=== PATIENT | female | born 1935 | race Caucasian/White ===

== ENCOUNTER 2019-01-03 11:42 | Inpatient (IN) ==
[2019-01-03] MEDS ORDERED: NS 500 ML IV ONE (12:26)
[2019-01-03 12:42] LABS: URINE SOURCE CATH
[2019-01-03 12:45] LABS: BILIRUBIN URINE NEGATIVE (NEGATIVE); BLOOD URINE NEGATIVE (NEGATIVE); COLOR YELLOW; GLUCOSE URINE NEGATIVE (NEGATIVE); KETONE URINE NEGATIVE (NEGATIVE); LEUKOCYTES URINE NEGATIVE (NEGATIVE); NITRITE URINE NEGATIVE (NEGATIVE); PROTEIN URINE NEGATIVE (NEGATIVE); SP GRAVITY URINE 1.008; TURBIDITY URINE CLEAR (CLEAR); UROBILINOGEN URINE NORMAL (NORMAL)
[2019-01-03 12:46] LABS: UR EPITHELIAL CELLS <10 /HPF (<10); URINE BACTERIA NEGATIVE /HPF; URINE RBC <10 /HPF (<10); URINE WBC <10 /HPF (<10)
[2019-01-03 13:06] LABS: AGAP 16; ALB/GLOB RATIO 1.3; ALBUMIN 4.6 g/dL (3.5-5.0); ALKALINE PHOSPHATASE 87 U/L (32-104); BUN 14 mg/dL (8-22); CHLORIDE 98 mmol/L (98-107); COSMO 278; CREATININE 0.7 mg/dL (0.5-0.9); ESTIMATED GFR > 60; GLUCOSE 140 mg/dL (70-104); GOT 26 U/L (10-30); GPT 13 U/L (10-36); SODIUM 138 mmol/L (136-145); TCO2 24 mmol/L (25-35); TOTAL BILIRUBIN 0.57 mg/dL (0.20-1.00); TOTAL PROTEIN 8.1 g/dL (6.3-8.3)
[2019-01-03 13:09] LABS: BASO# 0.01 X1000 (0.0-0.2); BASO% 0.2 % (0.0-0.8); HEMOGLOBIN 14.6 g/dL (12.0-16.0); LYMPH# 0.43 X1000 (1.2-3.4); MCH 30.9 PG (27-31); MCHC 33.2 g/dL (33-37); MONO# 0.22 X1000 (0.11-0.59); MONO% 3.6 % (1.7-9.3); MPV 9.8 FL (7.4-10.4); NEUT# 5.45 X1000 (1.4-6.5); NEUT% 89.2 % (42.2-75.2); PLT 219 X1000 (130-400); RBC 4.73 XMIL (4.2-5.4); RDW 13.1 % (11.5-14.5); WBC 6.11 X1000 (4.8-10.8)
[2019-01-03 13:12] LABS: POTASSIUM 4.2 mmol/L (3.5-5.1)
--- NOTE | 2019-01-03 13:52 | Diag Imaging Result Doc PS360 ---
CHEST-1 VIEW - 01/03/2019 INDICATION: SOB COMPARISON: None FINDINGS: There is mild cardiomegaly. Pulmonary vascularity is top normal. No infiltrates or edema. No large pleural effusion. IMPRESSION: Cardiomegaly. Electronically signed by Kayode Alexander 01/03/2019 1:50 PM
--- NOTE | 2019-01-03 13:53 | Diag Imaging Result Doc PS360 ---
PELVIS - 01/03/2019 INDICATION: pain TECHNIQUE: COMPARISON: None FINDINGS: Bones are intact and normally aligned. There is moderate to severe degeneration of both sacroiliac joints. Hip joints are well preserved. Soft tissues are grossly clear. There are surgical clips in the soft tissues at the left side of the pelvis. IMPRESSION: No acute disease. Electronically signed by Kayode Alexander 01/03/2019 1:51 PM
--- NOTE | 2019-01-03 13:54 | Diag Imaging Result Doc PS360 ---
LUMBAR SPINE 2-VIEWS - 01/03/2019 INDICATION: back pain TECHNIQUE: COMPARISON: 06/21/2017 FINDINGS: There is worsening central compression deformity of L1 consistent with osteoporotic compression fracture. This now measures about 33%. There may be subtle compression deformity of T12 as well with perhaps 10% loss of height. Stable anterolisthesis of L4 and L5. Stable moderate multilevel disc degeneration. IMPRESSION: Increasing osteoporotic compression fractures. Electronically signed by Kayode Alexander 01/03/2019 1:52 PM
[2019-01-03] MEDS ORDERED: TYLENOL PO ONE (14:05)
--- NOTE | 2019-01-03 14:46 | PROVIDER DOCUMENTATION ---
This chart was entered by Marija Pope Scribe, acting as scribe for Josh Siddiqui MD. HPI-General Adult - General Chief Complaint: Back Pain Stated Complaint: PAIN Time Seen by Provider: 01/03/19 12:21 Source: family (son), EMS Allergies/Adverse Reactions: Patient Allergies Allergy/AdvReac Type Severity Reaction Status Date / Time No Known Allergies Allergy Verified 01/03/19 12:34 Home Medications: Home Medication List Medication Instructions Recorded Confirmed Last Taken Type Levothyroxine [Synthroid] 100 microgm PO DAILY 07/15/13 01/03/19 01/02/19 History Aspirin 1 tab PO DAILY 01/03/19 01/03/19 01/02/19 History Cyanocobalamin (Vitamin B-12) 1 tab PO DAILY 01/03/19 01/03/19 01/02/19 History [Vitamin B12] Pravastatin Sodium 1 tab PO QHS 01/03/19 01/03/19 01/02/19 History - History of Present Illness -Gen Adult Nature of Presenting Problems: 83yof presents to ED cc 'pain' and weakness. Son is at bedside and reports pt c/o back pain, which is normal , before bed but could still walk and then this morning pt can't ambulate and c/o pain whenever she is touched anywhere. Son reports pt has severe dementia and this week. Upon exam pt flinches whenever her legs, arms, abdomen or head was touched. Onset/Duration: reports: this morning Timing: reports: still present Similar Symptoms Previously?: No Recently seen or treated by another doctor?: No Review of Systems - Adult - REVIEW OF SYSTEMS - ADULT ROS:: limited per condition (son) Constitutional: reports: see HPIbraden. denies: chills, fever Eyes: reports: no symptoms reported Ears, Nose, Mouth & Throat: reports: no symptoms reported Cardiovascular: reports: no symptoms reported Respiratory: reports: no symptoms reported Gastrointestinal: reports: no symptoms reported Genitourinary: reports: no symptoms reported Musculoskeletal: reports: see HPI, back pain Integumentary: reports: no symptoms reported Neurological: reports: no symptoms reported Psychiatric: reports: no symptoms reported Endocrine: reports: no symptoms reported Hematologic/Lymphatic: reports: no symptoms reported Allergic/Immunologic: reports: no symptoms reported All Other Systems: Reviewed and Negative Past History - Adult - PAST MEDICAL HISTORY-ADULT Review of Records: reports: Nursing Assessment Review, Medications Reviewed, Social history reviewed & non-contributory. Physical Exam-General - PHYSICAL EXAM-ADULT Initial Vital Signs Reviewed: Yes - CONSTITUTIONAL General Appearance: appears well. negative: anxious, combative - EYES Eyes: PERRL/EOMI, pink conjunctivae. negative: meningismus, pale conjunctivae, photophobia - HEAD, EARS, NOSE, MOUTH & THROAT HENMT: normocephalic/atraumatic, moist mucous membranes, normal ENT inspection. negative: angioedema - NECK Neck: non-tender, full range of motion, supple, normal inspection. negative: C- spine tenderness - RESPIRATORY Respiratory: chest non-tender, lungs clear, normal breath sounds, no pleuratic chest pain, no respiratory distress, no accessory muscle use. negative: crackles, rales, rhonchi, stridor, wheezing - CARDIOVASCULAR Cardiovascular: normal peripheral pulses, regular rate, rhythm, no edema, no gallop, no JVD, no murmur. negative: bradycardia, tachycardia - GASTROINTESTINAL (ABDOMEN) Abdominal Exam: normal bowel sounds, soft, no organomegaly, no pulsatile mass, tenderness. negative: non tender, guarding, rigid, rebound, hernia, mass - MUSCULOSKELETAL Extremity: normal range of motion, non-tender, normal gait, normal inspection, no pedal edema, no calf tenderness, normal capillary refill, pelvis stable. negative: deformity - PSYCHIATRIC Psych/Mental Status: normal mood/affect. negative: anxious, disheveled, depressed affect Progress - PLAN OF CARE/RESULTS Progress/Plan/Lab Results: Orders Category Date Time Status Light Cath Insertion ORDERED Care 01/03/19 12:26 Active CHEST-1 VIEW [RAD] Stat Exams 01/03/19 12:27 Ordered LUMBAR SPINE 2-VIEWS [RAD] Stat Exams 01/03/19 12:27 Ordered PELVIS [RAD] Stat Exams 01/03/19 12:27 Ordered CBC WITH DIFF [HEME] Stat Lab 01/03/19 12:26 Uncollected COMPREHENSIVE METABOLIC PANEL [CHEM] Stat Lab 01/03/19 12:26 Uncollected UA NIMS W/REFLEX CULT [URINALYSIS] Stat Lab 01/03/19 12:26 Uncollected 0.9% Sodium Chloride Inj [Ns] 500 ml Med 01/03/19 12:26 Active IV 999 mls/hr Result Diagrams: 01/03/19 12:20 01/03/19 12:20 - REASSESSMENT Reassessment #1 Time Reassessed: 14:45 Status: unchanged (MOVES ALL EXTREMITIES. DISCUSSED WITH HOSPITALIST. WILL ADMIT) - XRAY 1 XRAY: Bilateral XRAY Study: Chest Impression: See EMR Report (IMPRESSION: Cardiomegaly. Electronically signed by Kayode Alexander 01/03/2019 1:50 PM) 2 XRAY Study: Pelvis Impression: See EMR Report (IMPRESSION: No acute disease. Electronically signed by Kayode Alexander 01/03/2019 1:51 PM) 3 XRAY Study: Lumbar Spine Impression: See EMR Report (IMPRESSION: Increasing osteoporotic compression fractures. Electronically signed by Kayode Alexander 01/03/2019 1:52 PM) Departure - Departure Date of Disposition Decision: 01/03/19 Time of Disposition Decision: 14:44 DIAGNOSIS: Intractable back pain, Unable to ambulate Disposition: ADMITTED INPATIENT 09 Certified Medical Emergency: Emergent Condition: Stable Referrals and Follow-Ups: Faheem Edmondson [Primary Care Provider] - - Critical Care Note This patient required my direct & personal management of CC.: No Attestation - Physician/ CHRIS Attestation Patient care was provided by Advanced Practice Provider:: No The physician spent face to face time with patient:: Yes Advanced Practice Provider documentation review:: Supervising physician onsite and consulted in the evaluation and care of this patient. The physician did have a face to face encounter with the patient. This chart was documented by the indicated scribe, (Marija Pope Scribe) and accurately reflects the services I performed and decisions made by me, Josh Siddiqui MD, as attested by the provider's signature.
[2019-01-03] MEDS ORDERED: TYLENOL PO PRN (14:59)
[2019-01-03] MEDS ORDERED: ZOFRAN IV PRN (14:59)
[2019-01-03] MEDS ORDERED: ULTRAM PO PRN (15:05)
[2019-01-03] MEDS: MIRALAX PO SCH (16:42)
[2019-01-03] MEDS: LOVENOX SUBQ SCH (16:42)
[2019-01-03] MEDS: NS 1,000 ML IV SCH (16:42)
--- NOTE | 2019-01-03 19:41 | Diag Imaging Result Doc PS360 ---
ABDOMEN FLAT/UPRIGHT - 01/03/2019 INDICATION: constipation, COMPARISON: None FINDINGS: There is mild diffuse constipation. No bowel obstruction or free air. IMPRESSION: Mild diffuse constipation. Electronically signed by Kayode Alexander 01/03/2019 7:39 PM
[2019-01-03] MEDS ORDERED: PRAVACHOL PO SCH (21:00)
[2019-01-03] MEDS: LACTULOSE PO SCH (21:16)
--- NOTE | 2019-01-04 01:45 | HISTORY AND PHYSICAL ---
FINISHED CIGAR MAKER: Dr. Faheem Edmondson. CHIEF COMPLAINT: Generalized weakness. HISTORY OF PRESENT ILLNESS: Mrs. Moscoso is an 83-year-old female with past medical history of dementia, hyperlipidemia, and hypothyroidism. She presented to the ER today. Son states that last night she was not eating very much. She had a real decreased appetite. She went to bed. He woke up this morning. She was not up yet. Around 10 o'clock in the morning whenever he realized she still was not up he went in to check on her and the patient was complaining of severe back pain and did not feel like getting up and he stated that she did not think she was able to get up. He called EMS at this time. The son states that his father this past week and they buried him this week. Patient has had a real disruption to her routine this week. She does have severe dementia. She is able to still get up and move around. Her short- term memory comes and goes. She was able to converse with me while in the room. She did complain of pain to the bilateral lower extremities when I touched her legs. The patient was able to move her legs, but was complaining of pain in the legs. The patient did not seem to be oriented to place or time. She was oriented to person. The patient did know who her son was also. The patient is not complaining of any chest pain at this time. Family states she has not had any difficulty urinating. All skin is intact. She does have a very dry feet and she does have real thickened toenails. Laboratory findings, there are no acute findings on her labs. Her urinalysis was negative. There was a lumbar spine x-ray that showed increasing osteoporotic and compression fractures. The hip and the pelvis x-ray showed moderate to severe degeneration of both sacroiliac joints. The patient is unable to ambulate at this time. PAST MEDICAL HISTORY: Dementia, hypertension, hyperlipidemia, and hypothyroidism. PAST SURGICAL HISTORY: Son does not know of any surgeries that patient has had. He states if she had any surgeries, it was before he was born. FAMILY HISTORY: Mother from leukemia. She has had several brothers and sisters that had heart problems, and cancer and stroke. She had 9 brothers and sisters, only 1 is left living. SOCIAL: Patient lives with her son in [place]. She does not smoke. She does not drink. ALLERGIES: None. MEDICATIONS: 1. Aspirin 81 mg p.o. daily. 2. Vitamin B12 2500 mcg p.o. daily. 3. Synthroid 100 mcg p.o. daily. 4. Pravastatin sodium 20 mg p.o. at bedtime. LABORATORIES AND DIAGNOSTICS: White blood cell count 6.11, hemoglobin 14.6, hematocrit 44.0, platelet count 219,000. Sodium 138, potassium 4.2, carbon dioxide 24, BUN 14, creatinine is 0.7, estimated GFR is greater than 60, glucose is 140, calcium is 10, total bilirubin is 0.57, AST is 26, ALT is 13. Urinalysis is negative. Abdominal x-ray has been performed. There is no report back. X-ray of the lumbar spine shows increasing osteoporotic compression fractures. X-ray of the hip and pelvis shows no acute disease, but does show severe degeneration of both sacroiliac joints. Chest x-ray shows cardiomegaly. REVIEW OF SYSTEMS: A 12 point review of system has been performed. All are negative except what is stated above in the HPI. PHYSICAL EXAMINATION: VITAL SIGNS: Temperature 99.1 degrees, pulse rate 98, respiratory rate is 18, blood pressure is 152/67, O2 saturation is 100% on room air. Height is 5 feet 5 inches. Weight is 165 pounds. GENERAL: This is an 83-year-old female who is lying in the ER stretcher. She is in no acute distress at present time. She is well nourished and well developed. HEENT: Atraumatic, normocephalic. Pupils are equal, round, reactive to light. Mucous membranes are dry. NECK: Supple with no lymphadenopathy. Trachea is midline. No JVD noted. CARDIOVASCULAR: Regular rate and rhythm. No murmurs, gallops, or rubs appreciated. RESPIRATORY: Lung sounds are clear with equal chest excursion. Respirations are nonlabored with no accessory muscle usage. GASTROINTESTINAL: Soft, nontender, nondistended. Bowel sounds are present x4. GENITOURINARY: There is a Light catheter in place. It has clear yellow urine output. NEUROLOGIC: Patient is awake and alert. She is able to follow all commands. She does not know where she is. She does not know the year. She is unable to tell me her date, but she is able to tell me her name and she appears to know who her son is. MUSCULOSKELETAL: She is able to move all extremities to command. Full distal strength noted. No abnormalities, but she states that she is unable to get up at this time. Complaints of pain to lower legs. Son states that she is able to walk except for today she has not been able to walk. There are no deformities noted. EXTREMITIES: No clubbing, cyanosis. There is edema noted to bilateral lower extremities. The son states that this is not new for her. She does have usually have edema in the bilateral lower extremities. DP and PT pulses are present and palpable. SKIN: Warm. It is dry especially to the bilateral feet and nail beds are hardened on her bilateral feet and the nails are very thick. Skin is all intact. There are no rashes or bruises noted. No diaphoresis. ASSESSMENT AND PLAN: 1. Generalized weakness. We will admit this patient to the medical floor. We will place this patient on IV fluid hydration. We will resume all her home medications. We will control her pain with tramadol q.8 hours p.r.n., also Tylenol as needed. 2. Hypertension. We will resume patient's p.o. medications. 3. Hypothyroidism. We have resumed her Synthroid per home dose. 4. Hyperlipidemia. We have resumed her home medication, pravastatin. 5. Constipation. We are giving this patient some lactulose and we have performed an abdominal x- ray. 6. Dementia. The patient is not on any medications for her dementia. We will monitor her mentation. This is a chronic condition for her. 7. Gastrointestinal prophylaxis. Start this patient on omeprazole 40 mg p.o. daily. 8. Deep venous thrombosis prophylaxis. I have started this patient on Lovenox 40 mg subcutaneous daily. We have consulted [facility] for possible rehab placement sometime next week. We will admit this patient to the hospital for generalized weakness that has increased over the past 2 days. We will have Physical Therapy start with this patient and see if they can increase her mobility a little bit. We will start this patient on p.r.n. pain medication for her pain. We will also have [facility] get involved and Case Management to see if this patient can be placed in a rehab facility to assist her with ambulation and mobility. Dictated by HEATHER Foote for Catrachito Rose MD Addendum: Patient seen and examined by myself. Agree with HEATHER note. It reflects my assessment and plan. Patient is being admitted to hospital for generalized weakness. She also complains of mild back pain. Will optimize pain control and consult PT. Will continue with rest of home medications. cc: Catrachito Rose MD [facility]
[2019-01-04] MEDS: NS 1,000 ML IV SCH ×2 (06:35→18:44)
[2019-01-04] MEDS: SYNTHROID PO SCH (07:00)
[2019-01-04 07:46] LABS: BASO# 0.02 X1000 (0.0-0.2); BASO% 0.3 % (0.0-0.8); EOS# 0.01 X1000 (0.0-0.7); EOS% 0.1 % (0.0-10.0); HEMATOCRIT 40.5 % (37.0-47.0); HEMOGLOBIN 13.1 g/dL (12.0-16.0); LYMPH# 1.03 X1000 (1.2-3.4); MCH 31.1 PG (27-31); MCHC 32.3 g/dL (33-37); MCV 96.2 FL (81-99); MONO# 0.94 X1000 (0.11-0.59); MONO% 12.7 % (1.7-9.3); MPV 9.7 FL (7.4-10.4); NEUT# 5.38 X1000 (1.4-6.5); NEUT% 72.9 % (42.2-75.2); PLT 203 X1000 (130-400); RBC 4.21 XMIL (4.2-5.4); RDW 13.3 % (11.5-14.5); WBC 7.38 X1000 (4.8-10.8)
[2019-01-04 08:03] LABS: AGAP 13; BUN 13 mg/dL (8-22); CHLORIDE 105 mmol/L (98-107); COSMO 280; CREATININE 0.7 mg/dL (0.5-0.9); ESTIMATED GFR > 60; GLUCOSE 111 mg/dL (70-104); POTASSIUM 3.9 mmol/L (3.5-5.1); SODIUM 140 mmol/L (136-145); TCO2 22 mmol/L (25-35)
[2019-01-04] MEDS ORDERED: VITAMIN B-12 PO SCH (09:00)
--- NOTE | 2019-01-04 10:01 | PROGRESS NOTE ---
DATE: 01/04/2019 SUBJECTIVE: Patient reports feeling fine. Mild to moderate back pain but is controlled with medications she is receiving here. OBJECTIVE: Vital Signs: Temperature 99.6, heart rate 86, respiratory rate 18, blood pressure 126/53, O2 saturation 98% on room air. General: This is a 83-year-old, female lying in bed in no acute distress. Cardiovascular: S1, S2 heard. No murmurs, gallops, or rubs. Regular rate and rhythm. Respiratory: Exam clear bilaterally to auscultation. No work of breathing or using accessory muscles. Abdomen: Soft, nontender to palpation. Bowel sounds present. No organomegaly. Extremities: No clubbing, cyanosis, or edema. Peripheral pulses present in both legs. Neurological: The patient is alert and oriented x3. Moves all extremities. ASSESSMENT AND PLAN: 1. Back pain secondary to increasing osteoporotic compression fractures. Basically the main complaint for this patient coming to the hospital was unable to get up and walk. We have seen those findings in the lumbar spine. At this point I do not think there is any surgical treatment recommended so we will start physical therapy. She may need to go to rehab facility. 2. Hypertension. We will continue home medications. 3. Hypothyroidism. Will check TSH and receiving Synthroid. 4. Hyperlipidemia. Will continue home medications. 5. Constipation. Patient has been on lactulose and MiraLAX. 6. Gastrointestinal prophylaxis with omeprazole. DISPOSITION: We will continue to monitor this patient closely. cc: Catrachito Rose MD MTDD
[2019-01-04] MEDS: PRILOSEC PO SCH (10:17)
[2019-01-04] MEDS: MIRALAX PO SCH (10:18)
[2019-01-04] MEDS: LACTULOSE PO SCH ×2 (10:19→20:24)
[2019-01-04] MEDS: ASPIRIN PO SCH (10:25)
[2019-01-04] MEDS: ATIVAN IV PRN (10:55)
[2019-01-04] MEDS: VITAMIN B-12 PO SCH (16:54)
[2019-01-04] MEDS: LOVENOX SUBQ SCH (16:54)
[2019-01-04] MEDS ORDERED: VANCOMYCIN IV PER PHARMACY MISC SCH (18:45)
[2019-01-04] MEDS ORDERED: VANCOMYCIN 1,500 MG in NS 250 ML IV ONE (20:00)
[2019-01-05] MEDS: ATIVAN IV PRN
[2019-01-05] MEDS: SYNTHROID PO SCH (06:24)
[2019-01-05] MEDS: MIRALAX PO SCH (08:56)
[2019-01-05] MEDS: ASPIRIN PO SCH (08:56)
[2019-01-05] MEDS: LACTULOSE PO SCH ×3 (08:56→20:48)
[2019-01-05] MEDS: PRILOSEC PO SCH (08:56)
[2019-01-05] MEDS: VITAMIN B-12 PO SCH (08:57)
--- NOTE | 2019-01-05 10:49 | PROGRESS NOTE ---
DATE: 01/05/2019 SUBJECTIVE: The patient reports feeling fine. Moderate pain, but denies any fever or chills. OBJECTIVE: Vital Signs: Temperature 98.2 degrees, heart rate 81, respiratory rate 20, blood pressure 149/68, O2 saturation 98% on room air. General: This is an 83-year-old female, lying in bed in no acute distress. Cardiovascular: S1, S2 heard. No murmurs, gallops, or rubs. Regular rate and rhythm. Respiratory: Clear bilaterally to auscultation. No work of breathing or using accessory muscles. Abdomen: Soft, nontender to palpation. Bowel sounds present. No organomegaly. Extremities: No clubbing, cyanosis, or edema. Peripheral pulses present in both legs. Neurological: The patient is alert and oriented x3. Moves 4 extremities. LABORATORY DATA: Reviewed. There is 1 out of 2 positive blood cultures for Streptococcus viridans. ASSESSMENT AND PLAN: 1. Back pain secondary to increasing osteoporotic compression fractures. At this point, we are optimizing pain control, and Physical Therapy is also working with this patient. I do not think there is any surgical treatment for this patient, so will continue with the same management. 2. Hypertension. Blood pressure is under control. Will continue with the same medication. 3. Streptococcus bacteremia. That is what the results of the blood culture show, so I am not quite sure if bacteremia needs to be treated, so will consult Infectious Disease. Will go from there. 4. Hyperlipidemia. Will continue home medications. 5. Constipation. Will continue with lactulose and MiraLAX. The patient is having bowel movements. 6. Gastrointestinal prophylaxis with omeprazole. 7. Disposition. I think if this patient is cleared by Infectious Disease, she can be sent to rehab facility between tomorrow and the day after. cc: Catrachito Rose MD
[2019-01-05] MEDS: LOVENOX SUBQ SCH (15:00)
--- NOTE | 2019-01-05 16:17 | INFECTIOUS DISEASE CONSULT REP ---
DATE: 01/05/2019 CONCLUSION: The patient has 1 of 2 blood cultures positive for strep viridans. I think this is a contaminant. RECOMMENDATIONS: Because the viridans strep blood culture is contaminant it does not require antibiotic therapy. DISCUSSION: The patient was unable provide a history. The history I did have was from her son. The patient came to the hospital with back and neck pain and she had not had stool for about 2 or 3 days. Since she has been in, the pain has cleared up quite a bit and she has been passing stool. Laboratory findings show a CBC with a white count of 7380, hemoglobin 13.1, and platelet count 203,000. Creatinine is 0.7, GFR is greater than 60. Liver function studies are normal. Urinalysis showed no white cells or bacteria. The patient's x-ray of the abdomen showed mild diffuse constipation. The patient's chest x-ray showed cardiomegaly but no infiltrates. Lumbar spine x-ray showed increasing osteoporotic compression fractures. Hip and pelvis x-rays showed no acute disease. CRUISE AGENT HISTORY: The patient is a 2, para 2, AB 0. She has had a hysterectomy. REVIEW OF SYSTEMS: Unable to be obtained. PREVIOUS HOSPITALIZATIONS AND OPERATIONS: The patient has had 2 labor and deliveries, a hysterectomy and 1 admission for thyroid surgery. 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 INFECTIOUS DISEASE HISTORY: Positive for urinary tract infection. Negative for pneumonia. FAMILY HISTORY: Positive for cancer, stroke, diabetes and hypertension. SOCIAL HISTORY: The patient lives in [place] with her son. Very recently her . ALLERGIES: The patient has no known drug allergies. HOME MEDICATIONS: Consist of Synthroid and Pravachol. PHYSICAL EXAMINATION: Vital Signs: Temperature is 98.2 degrees, pulse 81, respirations 20, blood pressure 149/68. Patient is 5 feet 5 inches tall and weighs 170 pounds. General: This is a somewhat ill-appearing, elderly female. She is in no acute distress. Head, eyes, ears, nose, and throat: She can hear my spoken words and see near objects. I did not see any white patches on her tongue. Neck: No meningismus. Lungs: Clear to auscultation. Cardiovascular: Heart rate is regular. I did not hear any murmur. Abdomen: Soft and nontender. Neurologic: Patient is alert. She can move her extremities. There is no tremor. She has dementia and she did not carry on a coherent conversation. Integument: No rash noted. Thank you for the consult. cc: Louie Kaminski MD
[2019-01-05] MEDS ORDERED: PRAVACHOL PO SCH (21:00)
[2019-01-05] MEDS: NS 1,000 ML IV SCH (23:31)
[2019-01-06] MEDS: NS 1,000 ML IV SCH ×2 (00:41→09:25)
[2019-01-06] MEDS: SYNTHROID PO SCH (06:12)
[2019-01-06] MEDS ORDERED: VANCOMYCIN 1 GM/NS 1 GM/250 ML IVPB IV SCH (08:00)
[2019-01-06] MEDS: ASPIRIN PO SCH (08:58)
[2019-01-06] MEDS: PRILOSEC PO SCH (08:58)
[2019-01-06] MEDS: VITAMIN B-12 PO SCH (08:58)
[2019-01-06] MEDS: MIRALAX PO SCH (08:58)
[2019-01-06] MEDS: LACTULOSE PO SCH (08:58)
[2019-01-06] MEDS ORDERED: NORCO-5 PO PRN (09:41)
[2019-01-06 12:20] VITALS: BP 145/69
--- NOTE | 2019-01-06 12:45 | DISCHARGE SUMMARY ---
ADMISSION DATE: 01/03/2019 DISCHARGE DATE: 01/06/2019 DISCHARGE DIAGNOSES: 1. General weakness. 2. Increasing osteoporotic compression fractures. 3. Hypertension. 4. Hyperlipidemia. 5. Hypothyroidism. 6. Chronic constipation. 7. History of dementia. CONSULTATIONS: Dr. Louie Kaminski from infectious disease. PROCEDURES: 1. Chest x-ray done showed cardiomegaly. 2. Hip/pelvis x-ray showed no acute disease. 3. Lumbar spine x-ray showed increasing osteoporotic compression fractures with subtle compression deformity at T12, perhaps 10% loss of height. HOSPITAL COURSE: In brief, this is an 83-year-old, female with a past medical history as mentioned who presented to the emergency department complaining of general weakness. She was not eating very well. She had a decreased appetite and she was complaining of more back pain. Patient has been worked up in the ER with the results of those exams as above. The patient was provided physical therapy while she was here. One blood culture returned positive for Streptococcus viridans but infectious disease consulted and that bacterial was considered contaminant. In that regard, we did not provide any antibiotics. At this time, the patient is feeling much better. More awake, more alert, and she is going to rehab facility. DISCHARGE PHYSICAL EXAMINATION: Vital Signs: Temperature 98.3 degrees, heart rate 80, respiratory rate 16, blood pressure 135/76, O2 saturation 98% on room air. General Examination: This is a chronically ill-looking, 83-year-old, female lying in bed, in no acute distress. Cardiovascular Examination: S1 and S2 heard. No murmurs, gallops, or rubs. Regular rate and rhythm. Respiratory Examination: Clear bilaterally to auscultation. No work of breathing or using accessory muscles. Abdomen: Soft, nontender to palpation. Bowel sounds present. No organomegaly. Extremities: No clubbing, cyanosis, or edema. Peripheral pulses present in both legs. Neurological Examination: The patient is alert and oriented x3. Moves 4 extremities. DISCHARGE DISPOSITION: Rehab facility at [facility]. FOLLOWUP: With primary care physician in a week after she has been discharged from rehab. LIST OF MEDICATIONS: 1. John Day 5 mg 1 tablet p.o. q.4 hours p.r.n. pain. 2. MiraLAX 1 pack p.o. daily. 3. Lactulose 30 mL p.o. b.i.d. p.r.n. to constipation. 4. Levothyroxine 100 mcg 1 tablet p.o. daily. 5. Aspirin 81 mg 1 tablet p.o. daily. 6. Pravastatin 20 mg 1 tablet p.o. at bedtime. 7. Vitamin B12 at 2500 mcg 1 tablet p.o. daily. TIME SPENT: Time discharging this patient was 33 minutes. cc: Catrachito Rose MD MTDD
== END 2019-01-06 13:37 | DRG 544 ==
LOC: SUPCPDRO → ED 11:42 → 1N 15:31
PROVIDERS: ATTEND Internal Medicine
CPT/HCPCS: 71010; 71045; 72100; 72170; 74019; 74020; 80048; 80053; 81001; 84443; 85025; 87040; 87077; 97161; 97165; 97530; 97535; A9270; J1650; J2060; J2405; J3370; J7030; J7040; J7050